=== PATIENT | male | born 1985 | race African-American/Black ===

== ENCOUNTER 2018-08-30 14:42 | Emergency (ER) | payer MEDICAID ==
[~2018-08-30] VITALS: Ht 182.9 cm; Wt 70.3 kg
[2018-08-30 14:49] VITALS: BP_SYST 124
[2018-08-30] MEDS ORDERED: ACETAMINOPHEN 500 MG TABLET PO ONE (15:15)
[2018-08-30] MEDS ORDERED: KETOROLAC TROMETHAMINE 30 MG VIAL IVP ONE (15:15)
[2018-08-30] MEDS ORDERED: NACL 0.9% 1,000 ML IV ONE (15:15)
[2018-08-30 15:24] LABS: STREPTOCOCCUS A SCREEN (RAPID) NEGATIVE (NEGATIVE)
[2018-08-30 15:31] LABS: INFLUENZA A&B ANTIGEN SCREEN NEGATIVE FOR A & B (NEGATIVE)
[2018-08-30 16:09] VITALS: BP_SYST 122
== END 2018-08-30 16:09 | disposition home or self-care (01) ==
LOC: SED 14:42
DX: J02.8 Acute pharyngitis due to other specified organisms (principal); F17.210 Nicotine dependence, cigarettes, uncomplicated; R03.0 Elevated blood-pressure reading, without diagnosis of hypertension; Z71.6 Tobacco abuse counseling; Z88.2 Allergy status to sulfonamides
CPT/HCPCS: 36415; 86403; 86710; 87081; 96361; 96374; 99284; J1885; J7030